=== PATIENT | male | born 1945 | race African-American/Black ===

== ENCOUNTER → 2016-11-18 | Outpatient (CLI) | payer OTHER, MEDICARE ==
--- NOTE | 2016-11-18 08:03 | RAD ---
Left shoulder, 3 views, 11/18/2016: History: Lifting injury No fracture or dislocation is identified. There is moderate degenerative change at the AC joint. There is subchondral cyst formation along the glenoid rim on a degenerative basis. The periarticular soft tissues are unremarkable. IMPRESSION: 1. Moderate degenerative change. 2. No acute bony abnormality is detected.
== END | disposition home or self-care (01) ==
LOC: DXRADRC 07:47
PROVIDERS: ATTEND Physician Assistant Medical
DX: M19.012 Primary osteoarthritis, left shoulder (principal)
CPT/HCPCS: 73030

== ENCOUNTER → 2017-05-13 | Outpatient (CLI) | payer MEDICARE, OTHER ==
--- NOTE | 2017-05-13 16:01 | RAD ---
Chest, 2 views, 05/13/2017: History: Dyspnea on exertion Comparison is made to a study from 11/30/2013. The heart is moderately enlarged. The pulmonary vascularity is within normal limits. There is mild fissural prominence on the right. No acute infiltrate is seen. Slight pleural thickening in the lateral costophrenic angles is probably due to subpleural fat. No definite pleural fluid is seen. Moderate spurring is present in the spine. IMPRESSION: 1. Cardiomegaly. 2. No acute infiltrates.
--- NOTE | 2017-05-13 16:16 | RAD ---
Right hip, 2 views, 05/13/2017: History: Hip pain No fracture or dislocation is identified. There is minimal narrowing of the right hip joint with mild marginal spurring. The periarticular soft tissues are unremarkable. IMPRESSION: No acute right hip abnormality is detected.
== END | disposition home or self-care (01) ==
LOC: PMG 15:16
PROVIDERS: ATTEND Family Medicine
DX: M25.551 Pain in right hip (principal); R06.09 Other forms of dyspnea; I51.7 Cardiomegaly
CPT/HCPCS: 71046; 73502

== ENCOUNTER → 2017-08-20 | Outpatient (CLI) | payer MEDICARE, OTHER ==
--- NOTE | 2017-08-20 13:48 | RAD ---
Chest, 2 views, 08/20/2017: HISTORY: Congestive heart failure Comparison is made to a study from 05/13/2017. The heart is enlarged. The pulmonary vascularity is within normal limits. No pulmonary consolidation is seen. There is mild fissural prominence, also evident on the previous study. This may reflect scarring or chronic subpleural edema. No free pleural fluid is evident. Mild spurring is present in the spine. IMPRESSION: 1. Moderate cardiomegaly. 2. No significant change since 05/13/2017. Electronically signed by: Vince Granados MD (08/20/2017 1:45 PM) [facility]
== END | disposition home or self-care (01) ==
LOC: PMG 10:42
PROVIDERS: ATTEND Family Medicine
DX: I50.9 Heart failure, unspecified (principal); I51.7 Cardiomegaly
CPT/HCPCS: 71046

== ENCOUNTER → 2017-09-03 | Outpatient (CLI) | payer MEDICARE, OTHER ==
--- NOTE | 2017-09-03 12:17 | RAD ---
Renal ultrasound, 09/03/2017: HISTORY: Stage IV chronic kidney disease The right kidney measures 10.2 cm in length while the left kidney measures 9.8 cm. There is a 4.3 cm simple cyst in the left kidney. There are 3 smaller cysts in the right kidney, the largest of which measures 1.8 cm. The renal parenchymal echogenicity is otherwise unremarkable. There is no evidence of hydronephrosis. No abnormal perinephric process is seen. The partially filled urinary bladder is unremarkable. The incompletely visualized prostate gland is enlarged. IMPRESSION: 1. Bilateral renal cysts. 2. No evidence of renal obstruction. 3. Nonspecific prostatic enlargement. Electronically signed by: Vince Granados MD (09/03/2017 12:13 PM) [facility]
== END | disposition home or self-care (01) ==
LOC: US 09:01
PROVIDERS: ATTEND Internal Medicine Nephrology
DX: N18.4 Chronic kidney disease, stage 4 (severe) (principal); N28.1 Cyst of kidney, acquired; N40.0 Benign prostatic hyperplasia without lower urinary tract symptoms
CPT/HCPCS: 76770

== ENCOUNTER → 2017-09-30 | Outpatient (CLI) | payer MEDICARE, OTHER ==
--- NOTE | 2017-09-30 11:50 | CARD ---
MR#: [id number] Date of Study: 09/30/2017 Ordering Physician: DURGA CARCAMO, Referring Physician: DURGA CARCAMO, Tech: DON Charlton APPROVED REPORT EXAM: Two-dimensional and M-mode echocardiogram with Doppler and color Doppler. Other Information Quality : Average INDICATION Cardiomyopathy Chronic Renal Disease 2D DIMENSIONS Left Atrium(2D)5.4 (1.6-4.0cm)IVSd1.8 (0.7-1.1cm) Aortic Root(2D)2.8 (2.0-3.7cm)LVDd6.1 (3.9-5.9cm) LVOT Diameter2.1 (1.8-2.4cm)PWd1.6 (0.7-1.1cm) LVDs4.9 (2.5-4.0cm)FS (%) 16.0 % SV17.3 mlLVEF(%)33.0 (>50%) Aortic Valve LVOT Peak Asif.52.5cm/s Tricuspid Valve RAP [id number] LEFT VENTRICLE The Left Ventricle is mildly dilated. There is mild to moderate concentric left ventricular hypertrop hy. The systolic function is severely impaired. EF 30%. There is global hypokinesis of the left ventr icle. RIGHT VENTRICLE The right ventricle is normal size. There is normal right ventricular wall thickness. The right ventr icular systolic function is normal. ATRIA The left atrium is moderately dilated. The right atrium is mildly dilated. The interatrial septum is intact with no evidence for an atrial septal defect or patent foramen ovale as noted on 2-D or Dopple r imaging. AORTIC VALVE The aortic valve is trileaflet. Doppler and Color Flow revealed trace aortic regurgitation. There is no significant aortic valvular stenosis. MITRAL VALVE Restricted posterior leaflet due to LV dilation. There is no mitral valve stenosis. Doppler and Color -flow revealed mild to moderate posteriorly directed mitral regurgitation. TRICUSPID VALVE The tricuspid valve is normal in structure and function. Doppler and Color Flow revealed trace tricus pid regurgitation. There is no tricuspid valve stenosis. PULMONIC VALVE The pulmonic valve is not well visualized. Doppler and Color Flow revealed trace pulmonic valvular re gurgitation. . There is no pulmonic valvular stenosis. GREAT VESSELS The aortic root is normal in size. There is mild pulmonary artery dilatation. The IVC is mildly dilat ed and partially collapses with inspiration. PERICARDIAL EFFUSION There is no pleural effusion. There is a trace circumferential pericardial effusion. Critical Notification Critical Value: No <Conclusion> The systolic function is severely impaired. EF 30%. There is global hypokinesis of the left ventricle. Doppler and Color-flow revealed mild to moderate posteriorly directed mitral regurgitation. Signed by : Durga Carcamo, Electronically Approved : 09/30/2017 11:49:51
== END | disposition home or self-care (01) ==
LOC: ECHO 09:04
PROVIDERS: ATTEND Internal Medicine Cardiovascular Disease
DX: I34.0 Nonrheumatic mitral (valve) insufficiency (principal); I51.7 Cardiomegaly; N18.4 Chronic kidney disease, stage 4 (severe)
CPT/HCPCS: 93306

== ENCOUNTER → 2018-11-05 | Outpatient (CLI) | payer MEDICARE ==
--- NOTE | 2018-11-05 10:30 | RAD ---
Chest radiograph 11/05/2018 12:00 AM INDICATION: Shortness of air COMPARISON: August 20, 2017 TECHNIQUE: Frontal and lateral views of the chest are provided. FINDINGS: The cardiomediastinal silhouette is enlarged, stable. Left chest wall cardiac device is identified with leads projecting over the right atrium and right ventricle. Mild pulmonary vascular congestion. No significant pleural effusions. No pneumothorax. No focal airspace consolidation. IMPRESSION: Mild congestive heart failure, as detailed above. Electronically signed by: Chantelle Howard MD (11/05/2018 10:28 AM) [id number]
== END | disposition home or self-care (01) ==
LOC: DXRAD 10:09
PROVIDERS: ATTEND Internal Medicine Nephrology
DX: I13.2 Hypertensive heart and chronic kidney disease with heart failure and with stage 5 chronic kidney disease, or end stage renal disease (principal); I50.9 Heart failure, unspecified; N18.6 End stage renal disease
CPT/HCPCS: 71046

== ENCOUNTER 2019-06-09 06:06 | Emergency (ER) | payer MEDICARE ==
[~2019-06-09] VITALS: Ht 182.9 cm; Wt 87.0 kg
[2019-06-09] MEDS ORDERED: IV NORMAL SALINE 1,000ML 1,000 ML IV ONE (06:30)
[2019-06-09] MEDS ORDERED: IV NORMAL SALINE 500ML 500 ML IV ONE (07:00)
[2019-06-09] MEDS ORDERED: PANTOPRAZOLE IV 40 MG VIAL. IVP ONE (07:15)
--- NOTE | 2019-06-09 07:38 | PHYS DOC ---
Past History Past Medical History: Hypertension, Renal Failure (HD M/W/F) Additional Past Surgical Histo: RUE AV fistula placement, benign tumor removal RLQ ABD Smoking: Quit Greater Than 1 Year Alcohol Use: Occasionally Drug Use: None Adult General Chief Complaint Chief Complaint: DIZZY/LIGHT HEADED HPI HPI 74-year-old male presents with report of dizziness/lightheadedness which became worse this morning. Patient does report history of end-stage renal disease on hemodialysis Friday/Friday/Friday. Reports last had dialysis on Friday. Reports yesterday day had felt fine. Reports last night at around 0 started to have some maroon-colored diarrhea like stooling. Reports that had 5-10 episodes of similar since. Reports upon getting up this morning felt very lightheaded. Denies room spinning sensation. Denies any loss of consciousness but reports upon getting up this morning that his "legs gave out" and caused him to "sit down on the ground". Patient does reports worse with position change more often upon standing. Denies history of vertigo. Denies any nausea or vomiting. Denies fever. Denies known sick contacts. Denies travel outside [facility]. Patient does report history of colonoscopy in [address] Muñoz which noted polyps. Review of Systems Review of Systems Constitutional: Denies fever or chills Eyes: Denies redness or eye pain HENT: Denies nasal congestion or sore throat Respiratory: Denies cough or shortness of breath Cardiovascular: Denies chest pain or palpitations GI: Denies abdominal pain, nausea, or vomiting; reports maroon diarrhea : Denies dysuria or hematuria Musculoskeletal: Denies back pain or joint pain Integument: Denies rash or skin lesions Neurologic: Denies headache, focal weakness or sensory changes; reports lightheadedness/dizziness Complete systems were reviewed and found to be within normal limits, except as documented in this note. Current Medications Current Medications Current Medications Medications (Trade) Dose Ordered Sig/Ezequiel Start Time Stop Time Status Last Admin Dose Admin Pantoprazole Sodium (Protonix Vial) 40 mg 1X ONCE 06/09/19 07:15 06/09/19 07:16 DC Sodium Chloride 500 ml @ 0 mls/hr 1X ONCE 06/09/19 07:00 06/09/19 07:01 DC Allergies Allergies Allergies Coded Allergies Type Severity Reaction Last Updated Verified No Known Drug Allergies 01/04/14 No Physical Exam Physical Exam Constitutional: Well developed, well nourished, no acute distress, non-toxic appearance HENT: Normocephalic, atraumatic, oropharynx moist Eyes: PERRL, EOMI, conjunctiva normal, no discharge, no nystagmus Neck: Normal range of motion, no tenderness, supple Cardiovascular: Heart rate tachycardic, regular rhythm Lungs & Thorax: Bilateral breath sounds clear to auscultation, no wheezing Abdomen: Soft, no tenderness, no guarding/distention/rebound tenderness Rectal exam: Nurse Quality present, no external hemorrhoid noted, maroon-colored liquid on digital rectal exam, no internal hemorrhoid or fissure noted, nontender Skin: Warm, dry, no erythema, no rash Back: No tenderness, no CVA tenderness Extremities: No tenderness, ROM intact, no edema, right upper extremity AV fistula with good thrill Neurologic: Alert and oriented X 3, normal motor function, normal sensory function, cerebellar function intact, no focal deficits noted Psychologic: Affect normal, judgment normal Current Patient Data Vital Signs Vital Signs Date Time Temp Pulse Resp B/P (MAP) Pulse Ox O2 Delivery O2 Flow Rate FiO2 06/09/19 06:20 97.8 62 18 104/64 (77) 98 Room Air EKG EKG @0638 Sinus tachycardia at 108bpm, paced, no prior EKG for comparison per [facility]. Radiology/Procedures Radiology/Procedures PROCEDURE: CT HEAD WO CONTRAST EXAM: CT HEAD WITHOUT CONTRAST. HISTORY: Dizziness. TECHNIQUE: Computed tomography of the head was performed without intravenous contrast. One or more of the following individualized dose reduction techniques were utilized for this examination: 1. Automated exposure control. 2. Adjustment of the mA and/or kV according to patient size. 3. Use of iterative reconstruction technique. COMPARISON: None. FINDINGS: There is no intracranial hemorrhage. Hypoattenuation within the periventricular white matter indicates mild chronic microangiopathic change. Prominence of the lateral ventricles and hemispheric sulci indicates mild atrophy. The visualized paranasal sinuses appear clear. The orbits are unremarkable. The temporal bones are unremarkable. The calvarium reveals no suspicious lesions. IMPRESSION: 1. No acute intracranial findings. 2. Mild atrophy and chronic microangiopathic white matter change. Electronically signed by: Hattie Blue MD (06/09/2019 7:34 AM) [id number] Course & Med Decision Making Course & Med Decision Making Pertinent Labs and Imaging studies reviewed. (See chart for details) Patient presents with report of near syncopal episodes since 2129 last night. Patient has also had 5-10 episodes of maroon colored bloody diarrhea which was confirmed on digital rectal exam. Patient does have a history of prior abdominal polyps. Patient also with history of end-stage renal disease on dialysis. Last dialysis was Friday. Patient denies history of need for prior blood transf usions. Patient denies any abdominal pain. Abdomen non-peritoneal. Rectal exam without signs of bleeding hemorrhoid or fissure. On arrival patient also noted to have low blood pressure despite not taking his blood pressure medication this morning. 500 mL bolus of IV fluids provided. Empiric Protonix provided. Orthostatic vital signs noted decrease by 10mmHg in diastolic from laying to sitting and increase 9bpm upon sitting to standing. Patient also symptomatic upon standing. EKG paced. Labs obtained and posted to chart. Potassium WNL. Hemoglobin 10.4. No prior lab value for comparison in [facility]. Troponin slightly elevated- likely secondary to renal disease. CT head without acute process. Patient requiring transfer for admission to facility with GI and nephrology coverage for further evaluation and treatment. Discussed with Dr. Thornton (hospitalist) who is accepting of transfer for admission to [facility]. Discussed findings and plan with patient and family, who acknowledge understanding and agreement. Of note: patient reports he does make urine but was unable to provide sample prior to transport to [facility]. Dragon Disclaimer Dragon Disclaimer This electronic medical record was generated, in whole or in part, using a voice recognition dictation system. Departure Departure: Impression: Primary Impression: Near syncope Additional Impressions: Acute GI bleeding ESRD (end stage renal disease) on dialysis Elevated troponin Disposition: 05 TRANSFER OTHER ([facility]) Admitting Physician: Artur Thornton (at [facility]) Condition: STABLE Referrals: MICHELLE AVILA MD (PCP) Problem Qualifiers RAH KRAMER DO Jun 09, 2019 07:38
[2019-06-09 07:53] VITALS: BP 114/67
[2019-06-09 08:00] LABS: BASO # 0.1 x10^3/uL (0.0-0.2); BASO % 2 % (0-3); EOS # 0.1 x10^3/uL (0.0-0.7); EOS % 1 % (0-3); HEMATOCRIT 33.4 % (39.0-53.0); HEMOGLOBIN 10.4 g/dL (13.0-17.5); LYMPH % 19 % (24-48); MEAN CORPUSCULAR HEMOGLOBIN 28 pg (25-35); MEAN CORPUSCULAR HGB CONC 31 g/dL (31-37); MEAN CORPUSCULAR VOLUME 89 fL (79-100); MONO # 0.7 x10^3/uL (0.0-1.1); MONO % 13 % (0-9); NEUT # 3.4 x10^3uL (1.8-7.7); NEUT % 65 % (31-73); PLATELET COUNT 191 x10^3/uL (140-400); RED BLOOD COUNT 3.74 x10^6/uL (4.30-5.70); RED CELL DISTRIBUTION WIDTH 17.8 % (11.5-14.5); WHITE BLOOD COUNT 5.2 x10^3/uL (4.0-11.0)
[2019-06-09 08:06] LABS: CALCIUM 8.4 mg/dL (8.5-10.1); CREATININE 10.9 mg/dL (0.7-1.3); GFR 5.6; POTASSIUM 4.2 mmol/L (3.5-5.1)
[2019-06-09 08:21] LABS: ALBUMIN 3.1 g/dL (3.4-5.0); ALBUMIN/GLOBULIN RATIO 0.8 (1.0-1.7); TOTAL BILIRUBIN 0.4 mg/dL (0.2-1.0); TOTAL PROTEIN 6.8 g/dL (6.4-8.2)
--- NOTE | 2019-06-09 17:33 | EKG ---
[address] [address] Test Date: 2019-06-09 Test Time: 06:38:41 Pat Name: NATE RANGEL Department: Room: Gender: M Order Picker: : [phone] Requested By: RAH KRAMER Order Number: [id number] Reading MD: Measurements Intervals [place] Rate: 108 P: 68 ID: [id number] QRS: -12 QRSD: 114 T: -59 QT: 374 QTc: 505 Interpretive Statements SINUS TACHYCARDIA LEFT ATRIAL ABNORMALITY LEFTWARD AXIS QRS(T) CONTOUR ABNORMALITY CONSIDER ANTEROLATERAL MYOCARDIAL DAMAGE T ABNORMALITY IN INFEROLATERAL LEADS ABNORMAL ECG RI6.01 No previous ECG available for comparison
== END 2019-06-09 08:50 | disposition short-term general hospital (02) ==
LOC: ER 06:06
DX: R55 Syncope and collapse (principal); K92.2 Gastrointestinal hemorrhage, unspecified; R79.89 Other specified abnormal findings of blood chemistry; I12.0 Hypertensive chronic kidney disease with stage 5 chronic kidney disease or end stage renal disease; N18.6 End stage renal disease; Z99.2 Dependence on renal dialysis; Z87.891 Personal history of nicotine dependence
CPT/HCPCS: 36415; 70450; 80053; 82553; 83735; 84484; 85025; 85610; 85730; 93005; 96374; 99285; C9113; J7040

== ENCOUNTER 2019-09-07 12:16 | Emergency (ER) | payer MEDICARE ==
[~2019-09-07] VITALS: Ht 182.9 cm; Wt 88.0 kg
[2019-09-07] MEDS ORDERED: DIPH,PERTUSS(ACELL),TET VAC/PF 0.5 ML SYRINGE. VAX IM ONE (12:30)
[2019-09-07] MEDS ORDERED: LIDOCAINE 1% Multi-Dose 20 ML VIAL. IJ ONE (12:45)
[2019-09-07 12:50] VITALS: BP 146/79
--- NOTE | 2019-09-07 13:09 | PHYS DOC ---
Past History Past Medical History: Hypertension, Renal Failure Past Surgical History: Other Additional Past Surgical Histo: RUE AV fistula placement, benign tumor removal RLQ ABD Smoking: Quit Greater Than 1 Year Alcohol Use: Rarely Drug Use: None General Adult EDM: Chief Complaint: LACERATION/AVULSION HPI: HPI: Patient is a 74-year-old male who presents to the emergency department about 10 hours after he stumbled getting out of bed fell and hit his right ear on the nightstand. He noticed it was bleeding but was not sure how significant the injury was so he went back to sleep woke up this morning and noticed that he had quite a large laceration on the right ear. He did not lose consciousness he does not have a headache he denies any lateralizing neurologic weakness. He does not know when his last tetanus was. [] Review of Systems: Review of Systems: Constitutional: Denies fever or chills Eyes: Denies change in visual acuity HENT: Right ear laceration Respiratory: Denies cough or shortness of breath Cardiovascular: Denies chest pain or edema GI: Denies abdominal pain, nausea, vomiting, bloody stools or diarrhea : Denies dysuria Musculoskeletal: Denies back pain or joint pain Integument: Per HPI Neurologic: Denies headache, focal weakness or sensory changes Endocrine: Denies polyuria or polydipsia Lymphatic: Denies swollen glands Psychiatric: Denies depression or anxiety Heart Score: Risk Factors: Risk Factors: DM, Current or recent (<one month) smoker, HTN, HLP, family history of CAD, obesity. Risk Scores: Score 0 - 3: 2.5% MACE over next 6 weeks - Discharge Home Score 4 - 6: 20.3% MACE over next 6 weeks - Admit for Clinical Observation Score 7 - 10: 72.7% MACE over next 6 weeks - Early Invasive Strategies Current Medications: Current Meds: Current Medications Medications (Trade) Dose Ordered Sig/Ezequiel Start Time Stop Time Status Last Admin Dose Admin Diphtheria/ Pertussis/Tetanus Vacc (ADACEL TDap SYRINGE) 0.5 ml ONCE ONCE 09/07/19 12:30 09/07/19 12:32 DC 09/07/19 12:44 0.5 ML Lidocaine HCl 20 ml 1X ONCE 09/07/19 12:45 09/07/19 12:46 UNV 09/07/19 12:43 20 ML Allergies: Allergies: Allergies Coded Allergies Type Severity Reaction Last Updated Verified No Known Drug Allergies 06/09/19 No Physical Exam: PE: Constitutional: Well developed, well nourished, no acute distress, non-toxic appearance. [] HENT: The right ear has a large complex laceration, there is a 3.5 semicircular laceration in the anti-helix area that is superficial to the cartilage the laceration extends around the helix and has split the helix through and through. [] Eyes: PERRLA, EOMI, conjunctiva normal, no discharge. [] Neck: Normal range of motion, no tenderness, supple, no stridor. [] Cardiovascular:Heart rate regular rhythm, no murmur [] Lungs & Thorax: Bilateral breath sounds clear to auscultation [] Abdomen: Bowel sounds normal, soft, no tenderness, no masses, no pulsatile masses. [] Skin: Warm, dry, no erythema, no rash. [] Back: No tenderness, no CVA tenderness. [] Extremities: Dialysis fistula right upper extremity, no tenderness, no cyanosis, no clubbing, ROM intact, no edema. [] Neurologic: Alert and oriented X 3, normal motor function, normal sensory f unction, no focal deficits noted. [] Psychologic: A anxious [] Current Patient Data: Vital Signs: Vital Signs Date Time Temp Pulse Resp B/P (MAP) Pulse Ox O2 Delivery O2 Flow Rate FiO2 09/07/19 12:20 98.8 96 20 156/72 (100) 96 Room Air EKG: EKG: [] Radiology/Procedures: Radiology/Procedures: [] Course & Med Decision Making: Course & Med Decision Making Pertinent Labs and Imaging studies reviewed. (See chart for details) [Procedure: Complex laceration repair right ear The wound was scrubbed with Hibiclens Betadine and irrigated with copious amounts of saline then using 5 cc of 1% lidocaine the area was anesthetized. Then using 10 simple interrupted 5-0 Prolene sutures the wound edges were reapproximated nicely. The patient tolerated the procedure well. Dragon Disclaimer: Dragon Disclaimer: This electronic medical record was generated, in whole or in part, using a voice recognition dictation system. Departure Departure: Impression: Primary Impression: Laceration of right ear, external Qualified Codes: S01.311A - Laceration without foreign body of right ear, initial encounter Disposition: HOME/RESIDENCE PRIOR TO ADM Condition: STABLE Referrals: MICHELLE AVILA MD (PCP) Patient Instructions: Ear Surgery, Care After, [id number], Laceration Care, Adult Additional Instructions: Sutures come out in 7 days. Use Neosporin twice daily to the wound. Return to the emergency department for any new or concerning symptoms SERGE KRISHNAN DO September 07, 2019 13:09
== END 2019-09-07 13:10 | disposition home or self-care (01) ==
LOC: ER 12:16
DX: S01.311A Laceration without foreign body of right ear, initial encounter (principal); I12.9 Hypertensive chronic kidney disease with stage 1 through stage 4 chronic kidney disease, or unspecified chronic kidney disease; N18.9 Chronic kidney disease, unspecified; Z87.891 Personal history of nicotine dependence; W22.03XA Walked into furniture, initial encounter; Y93.89 Activity, other specified; Y92.89 Other specified places as the place of occurrence of the external cause; Y99.8 Other external cause status
CPT/HCPCS: 12013; 90471; 90715; 99283-25

== ENCOUNTER 2019-09-15 10:36 | Emergency (ER) | payer MEDICARE ==
[~2019-09-15] VITALS: Ht 182.9 cm; Wt 88.0 kg
--- NOTE | 2019-09-15 11:01 | PHYS DOC ---
Past History Past Medical History: Hypertension, Renal Failure Past Surgical History: Other Additional Past Surgical Histo: RUE AV fistula placement, benign tumor removal RLQ ABD Smoking: Quit Greater Than 1 Year Alcohol Use: Rarely Drug Use: None General Adult EDM: Chief Complaint: SUTURE/STAPLE REMOVAL HPI: HPI: 74-year-old male presents for suture removal. Patient had a laceration of his right ear that was repaired 8 days ago. He presents to have these sutures removed. He has had no complications. He denies fever chills. Review of Systems: Review of Systems: Constitutional: Denies fever or chills Eyes: Denies change in visual acuity HENT: Denies nasal congestion or sore throat Respiratory: Denies cough or shortness of breath Cardiovascular: Denies chest pain or edema GI: Denies abdominal pain, nausea, vomiting, bloody stools or diarrhea : Denies dysuria Musculoskeletal: Denies back pain or joint pain Integument: Sutures right ear Neurologic: Denies headache, focal weakness or sensory changes Endocrine: Denies polyuria or polydipsia Lymphatic: Denies swollen glands Psychiatric: Denies depression or anxiety Heart Score: Risk Factors: Risk Factors: DM, Current or recent (<one month) smoker, HTN, HLP, family history of CAD, obesity. Risk Scores: Score 0 - 3: 2.5% MACE over next 6 weeks - Discharge Home Score 4 - 6: 20.3% MACE over next 6 weeks - Admit for Clinical Observation Score 7 - 10: 72.7% MACE over next 6 weeks - Early Invasive Strategies Allergies: Allergies: Allergies Coded Allergies Type Severity Reaction Last Updated Verified No Known Drug Allergies 06/09/19 No Physical Exam: PE: Constitutional: Well developed, well nourished, no acute distress, non-toxic appearance. [] HENT: Normocephalic, atraumatic, right superior ear with stitches in place, oropharynx moist, no oral exudates, nose normal. [] Eyes: PERRLA, EOMI, conjunctiva normal, no discharge. [] Neck: Normal range of motion, no tenderness, supple, no stridor. [] Cardiovascular:Heart rate regular rhythm, no murmur [] Lungs & Thorax: Bilateral breath sounds clear to auscultation [] Abdomen: Bowel sounds normal, soft, no tenderness, no masses, no pulsatile masses. [] Skin: Right ear with multiple sutures, no signs of infection, skin well approximated. [] Back: No tenderness, no CVA tenderness. [] Extremities: No tenderness, no cyanosis, no clubbing, ROM intact, no edema. [] Neurologic: Alert and oriented X 3, normal motor function, normal sensory function, no focal deficits noted. [] Psychologic: Affect normal, judgement normal, mood normal. [] EKG: EKG: [] Radiology/Procedures: Radiology/Procedures: [] Course & Med Decision Making: Course & Med Decision Making Pertinent Labs and Imaging studies reviewed. (See chart for details) The patient's laceration appears intact and a for suture removal. They have been her mood by the nurse without complication. He is stable for discharge at this time. [] Dragon Disclaimer: Dragon Disclaimer: This electronic medical record was generated, in whole or in part, using a voice recognition dictation system. Departure Departure: Impression: Primary Impression: Encounter for removal of sutures Disposition: HOME/RESIDENCE PRIOR TO ADM Condition: IMPROVED Referrals: MICHELLE AVILA MD (PCP) Patient Instructions: Suture Removal-Brief SHANTE PARK DO September 15, 2019 11:01
[2019-09-15 11:07] VITALS: BP 146/79
== END 2019-09-15 11:03 | disposition home or self-care (01) ==
LOC: ER 10:36
DX: S01.311D Laceration without foreign body of right ear, subsequent encounter (principal); I12.9 Hypertensive chronic kidney disease with stage 1 through stage 4 chronic kidney disease, or unspecified chronic kidney disease; N18.9 Chronic kidney disease, unspecified; Z87.891 Personal history of nicotine dependence; X58.XXXD Exposure to other specified factors, subsequent encounter
CPT/HCPCS: 99281

== ENCOUNTER → 2019-12-15 | Outpatient (CLI) | payer MEDICARE ==
[~2019-12-15] MED LIST: REGADENOSON 0.4 MG/5 ML DISP.SYRIN. IV ONE
--- NOTE | 2019-12-15 12:31 | RAD ---
MR#: [id number] Date of Study: 12/15/2019 Ordering Physician: RANDA CARCAMO, Referring Physician: LISA CASTILLO Tech: RT Quiana (R) (N) APPROVED REPORT Test Type: Pharmacological Stress Nurse/Tech: Quan Rosenberg Test Indications: Ventricular tachycardia Cardiac History: Diabetes Resting Heart Rate: 88 bpm Resting Blood Pressure: 154/69mmHg Pretest Chest Pain: No chest pain Pharm. Details Pharmacologic stress testing was performed using 0.4mg per 5ml of regadenoson given intravenously ove r 7-10 seconds. Stress Symptoms Dyspnea POST EXERCISE Reason for Termination: Infusion complete Max HR: 115 bpm Max Blood Pressure: 126/60mmHg Blood Pressure response to exercise: Normal blood pressure response during stress. Chest Pain: No. Arrhythmia: No. ST Change: No. INTERPRETATION Stress EKG Conclusion: Baseline EKG showed sinus rhythm. No ischemic changes at peak stress. No arr hythmias. Imaging Protocol IMAGE PROTOCOL: Rest Tc-99m/stress Tc-99m 1 day Rest: Stress: Viability: Radiopharm.Tc99m DbggdzqraVt12a Sestamibi [id number] 32mCi Duration 15min. 15min. Img Date 12/15/2019 12/15/2019 Inj-Img [id number]. 60min. Rest Admin Site:IV - Left AntecubitalAdministrator: RT Quiana (R)(N) Stress Admin Site: IV - Left AntecubitalAdministrator: RT Quiana (R)(N) STRESS DATA End Diast. Vol.140.0mlAv. Heart Rate97.0bpm End Syst. Vol.66.0mlCO Index BSA7.2L/min Myocardial Aiwq909.0gEject. Vfwlbbni95.0% Stress Rates Pk. Fill Rate3.02EDV/secLVtime Pk. Fill 84.55msec Pk. Empty Rate4.26ESV/secLVtime Pk. Tjjoo140.11msec 04/23 Pk. Fill1.95EDV/sec Stress Scores Regional WT1.00Summed WT13.00 Regional WM0.00Summed WM11.00 Study quality was good. Left Ventricular size was Normal at Rest and Stress. Lung uptake was . Left Ventricular ejection fraction is 58%. The rest and stress images show normal perfusion, normal contraction and thickening. LV Perf. Quant 17 Seg. SSS0.00 17 Seg. SRS2.00 17 Seg. SDS0.00 Stress Defect Extent (% LAD)0.00Rest Defect Extent (% LAD)5.00Rev. Defect Extent (% LAD)0.00 Stress Defect Extent (% LCX) 0.00Rest Defect Extent (% LCX)15.00Rev. Defect Extent (% LCX)0.00 Stress Defect Extent (% RCA)0.00Rest Defect Extent (% RCA)0.00Rev. Defect Extent (% RCA)0.00 Stress Defect Extent (% EVAN)0.00Rest Defect Extent (% EVAN)4.80Rev. Defect Extent (% EVAN)0.00 Conclusion 1. Regadenoson cardioisotope stress test did not show any evidence of ischemia or infarct. 2. Normal left ventricular systolic function with ejection fraction calculated at 58%. 3. Low risk for cardiac events. Signed by : Jarret Starr, Electronically Approved : 12/15/2019 12:30:49
== END | disposition home or self-care (01) ==
LOC: NM 08:02
PROVIDERS: ATTEND Internal Medicine Cardiovascular Disease
DX: I47.2 Ventricular tachycardia (principal)
CPT/HCPCS: 78452; 93017; A9500; J2785

== ENCOUNTER 2020-01-27 06:48 | Emergency (ER) | payer MEDICARE ==
[~2020-01-27] VITALS: Ht 177.8 cm; Wt 95.1 kg
[2020-01-27] MEDS ORDERED: MORPHINE SULFATE 4 MG/ML DISP.SYRIN. IV ONE (07:30)
[2020-01-27] MEDS ORDERED: IV NORMAL SALINE 1,000ML 1,000 ML IV ONE (07:30)
--- NOTE | 2020-01-27 07:30 | PHYS DOC ---
Past History Past Medical History: Hypertension, Renal Failure Past Surgical History: Other Additional Past Surgical Histo: RUE AV fistula placement, benign tumor removal RLQ ABD Smoking: Quit Greater Than 1 Year Alcohol Use: None Drug Use: None General Adult EDM: Chief Complaint: DIARRHEA HPI: HPI: History obtained from the patient. Patient is a 74-year-old male with past medical history notable for recent colonoscopy and ESRD follows hypertension who presents with chief complaint of lower abdominal pain for the past 3 days. He states the pain began gradually. States pain is aching in nature. He states he did have a colonoscopy 6 days ago. He states it was routine in nature. He is unsure if any polyps were removed. He states he was constipated post colonoscopy and therefore started to take laxatives. He states he took 3-4 doses over the past 3 days. He states that he has had loose stool since. Denies any nausea or vomiting. States he typically receives dialysis on Mondays, Wednesdays, and Fridays. He states he did not go yesterday because he is not feeling well. Denies any chest pain or shortness of breath. Denies any blood in the stool. Denies any urinary symptoms but does state that he makes a little bit of urine. Denies objective fevers. States that he seems to make the pain better or worse. He states he has tolerated p.o. well without difficulty. No other complaints. Review of Systems: Review of Systems: Constitutional: Denies fever or chills Eyes: Denies change in visual acuity HENT: Denies nasal congestion or sore throat Respiratory: Denies cough or shortness of breath Cardiovascular: Denies chest pain or edema GI: Positive for abdominal pain and diarrhea : Denies dysuria Musculoskeletal: Denies back pain or joint pain Integument: Denies rash Neurologic: Denies headache, focal weakness or sensory changes Endocrine: Denies polyuria or polydipsia Lymphatic: Denies swollen glands Psychiatric: Denies depression or anxiety Heart Score: Risk Factors: Risk Factors: DM, Current or recent (<one month) smoker, HTN, HLP, family histo ry of CAD, obesity. Risk Scores: Score 0 - 3: 2.5% MACE over next 6 weeks - Discharge Home Score 4 - 6: 20.3% MACE over next 6 weeks - Admit for Clinical Observation Score 7 - 10: 72.7% MACE over next 6 weeks - Early Invasive Strategies Current Medications: Current Meds: Current Medications Medications (Trade) Dose Ordered Sig/Ezequiel Start Time Stop Time Status Last Admin Dose Admin Sodium Chloride 1,000 ml @ 1,000 mls/hr 1X ONCE 01/27/20 07:30 01/27/20 08:29 UNV Allergies: Allergies: Allergies Coded Allergies Type Severity Reaction Last Updated Verified No Known Drug Allergies 06/09/19 No Physical Exam: PE: Constitutional: Well developed, well nourished, no acute distress, non-toxic appearance. [] HENT: Normocephalic, atraumatic, bilateral external ears normal, oropharynx moist, no oral exudates, nose normal. [] Eyes: PERRLA, EOMI, conjunctiva normal, no discharge. [] Neck: Normal range of motion, no tenderness, supple, no stridor. [] Cardiovascular:Heart rate regular rhythm, no murmur. Right upper extremity fistula with palpable thrill and audible bruit. [] Lungs & Thorax: Bilateral breath sounds clear to auscultation [] Abdomen: Soft, nontender, nonacute abdomen. No involuntary guarding or rigidity noted. No acute peritonitis. Skin: Warm, dry, no erythema, no rash. [] Back: No tenderness, no CVA tenderness. [] Extremities: No tenderness, no cyanosis, no clubbing, ROM intact, no edema. [] Neurologic: Alert and oriented X 3, normal motor function, normal sensory function, no focal deficits noted. [] Psychologic: Affect normal, judgement normal, mood normal. [] Current Patient Data: Labs: Laboratory Tests Test 01/27/20 07:38 White Blood Count 7.8 x10^3/uL Red Blood Count 3.83 x10^6/uL Hemoglobin 11.8 g/dL Hematocrit 36.7 % Mean Corpuscular Volume 96 fL Mean Corpuscular Hemoglobin 31 pg Mean Corpuscular Hemoglobin Concent 32 g/dL Red Cell Distribution Width 16.5 % Platelet Count 159 x10^3/uL Neutrophils (%) (Auto) 77 % Lymphocytes (%) (Auto) 11 % Monocytes (%) (Auto) 9 % Eosinophils (%) (Auto) 1 % Basophils (%) (Auto) 1 % Neutrophils # (Auto) 6.0 x10^3uL Lymphocytes # (Auto) 0.9 x10^3/uL Monocytes # (Auto) 0.7 x10^3/uL Eosinophils # (Auto) 0.1 x10^3/uL Basophils # (Auto) 0.1 x10^3/uL Sodium Level 139 mmol/L Potassium Level 3.8 mmol/L Chloride Level 101 mmol/L Carbon Dioxide Level 17 mmol/L Anion Gap 21 Blood Urea Nitrogen 84 mg/dL Creatinine 13.7 mg/dL Estimated GFR (Cockcroft-Gault) 4.3 BUN/Creatinine Ratio 6 Glucose Level 65 mg/dL Calcium Level 8.3 mg/dL Magnesium Level 2.2 mg/dL Total Bilirubin 0.5 mg/dL Aspartate Amino Transf (AST/SGOT) 22 U/L Alanine Aminotransferase (ALT/SGPT) 27 U/L Alkaline Phosphatase 57 U/L Total Protein 8.1 g/dL Albumin 3.6 g/dL Albumin/Globulin Ratio 0.8 Lipase 151 U/L Current Medications Medications (Trade) Dose Ordered Sig/Ezequiel Route PRN Reason Start Time Stop Time Status Last Admin Dose Admin Sodium Chloride 1,000 ml @ 1,000 mls/hr 1X ONCE IV 01/27/20 07:30 01/27/20 08:29 DC 01/27/20 07:46 Morphine Sulfate (Morphine 4mg Syringe) 4 mg 1X ONCE IV 01/27/20 07:30 01/27/20 07:42 DC 01/27/20 07:46 Ciprofloxacin Lactate 200 ml @ 200 mls/hr 1X ONCE IV 01/27/20 09:15 01/27/20 10:14 UNV Metronidazole 100 ml @ 100 mls/hr 1X ONCE IV 01/27/20 09:15 01/27/20 10:14 UNV Vital Signs: Vital Signs Date Time Temp Pulse Resp B/P (MAP) Pulse Ox O2 Delivery O2 Flow Rate FiO2 01/27/20 07:46 22 99 Room Air 01/27/20 07:15 99.1 93 20 152/89 (110) 98 Room Air EKG: EKG: [] Radiology/Procedures: Radiology/Procedures: [address] [address] IMAGING REPORT Signed PATIENT: NATE RANGEL ACCOUNT: [id number] : 1945 LOCATION: ER AGE: 74 SEX: M EXAM STATUS: REG ER ORD. PHYSICIAN: TEJ RODAS DO REASON: lower abdominal pain s/p colonscopy 6 days ago PROCEDURE: CT ABDOMEN PELVIS WO CONTRAST PQRS Compliance Statement: One or more of the following individualized dose reduction techniques were utilized for this examination: 1. Automated exposure control 2. Adjustment of the mA and/or kV according to patient size 3. Use of iterative reconstruction technique CT abdomen/pelvis without contrast 01/27/2020 12:00 AM INDICATION: Lower abdominal pain status post colonoscopy 6 days ago. COMPARISON: CT abdomen 06/29/2015 TECHNIQUE: Multiple axial CT images of the abdomen and pelvis were obtained without intravenous contrast. Coronal and sagittal reformats are provided. FINDINGS: There is a 3 mm calcified granuloma the right lung base. Heart size is enlarged. Cardiac pacer wires are partially profiled. Evaluation of solid abdominal viscera is limited by lack of intravenous contrast. Liver, spleen, bilateral adrenal glands and gallbladder are normal in appearance. There is mild fatty atrophy of the tail the pancreas. Abdominal aorta is normal in caliber with dense calcified atheromatous plaque. There are no pathologically enlarged lymph nodes in abdomen and pelvis. There is no free intraperitoneal air. Right external iliac lymph node measures 9.5 mm by short axis (series 2, image 115). Trace free fluid is identified along the retroperitoneum with periureteral fat stranding. Mild bilateral hydronephrosis. There is a right renal hypodensity which measures simple fluid attenuation suggestive of a cyst measuring 2.0 cm. Left renal cyst measures 5.1 cm. Inferior pole left renal hypodense lesion measures higher than that of simple fluid, 1.6 cm. Periureteral fat stranding is noted. There is mild bladder wall thickening with pericystic inflammatory changes. There is enlargement the prostate measuring 6.3 x 6.3 cm. There is hypoattenuation in the right peripheral zone measuring approximately 2.5 x 1.5 cm. Small fat-containing bilateral inguinal hernias. No suspicious osseous abnormality is identified. Urinary distention with urinary bladder measuring 8.8 x 9.7 x 14.5 cm. Small large bowel are normal in caliber. Mild colonic diverticulosis. No adjacent inflammatory changes. Inferior endplate Schmorl's node identified at T11 without significant height loss. No suspicious osseous abnormality. IMPRESSION: 1. There is urinary distention with mild bilateral hydroureteronephrosis with extensive periureteral and pericystic inflammatory changes. Findings most favor cystitis and pyelitis. Correlate clinically for pyelonephritis. Prominence of the renal collecting systems may reflect pyelstasis versus bladder outlet obstruction. 2. Prostatomegaly with a hypoattenuating area in the right peripheral zone measuring 2.5 x 1.5 cm. Correlate for signs and symptoms of prostatitis. 3. Mild diverticulosis without adjacent inflammatory changes. 4. Right external iliac lymph node measures 9.5 mm suggestive of reactive changes. 5. Indeterminate inferior pole left renal lesion measuring 1.6 cm. Further characterization with renal mass protocol CT or ultrasound could be of benefit. Electronically signed by: Michael Blanco MD (01/27/2020 8:11 AM) [facility] [place] DICTATED AND SIGNED BY: MICHAEL BLANCO MD DATE: 01/27/20810 CC: MICHELLE AVILA MD; TEJ RODAS DO ~ [] Course & Med Decision Making: Course & Med Decision Making Pertinent Labs and Imaging studies reviewed. (See chart for details) [] Patient is a 74-year-old male who presents with chief complaint of abdominal pain with changes in his stool over the past several days. Patient does have a history of ESRD and did miss dialysis yesterday. Chemistry panel does show significantly elevated creatinine. Electrolytes within normal limits. CT imaging does show nonspecific inflammatory changes near the pelvis. This could be related to diverticulitis. He will be given ciprofloxacin and Flagyl. Given his recently missed dialysis appointment I do feel he would benefit from hospitalization. Patient will be transferred to [facility] for nephrology consultation. Signout given to Dr.Madi Perez Disclaimer: Chris Disclaimer: This electronic medical record was generated, in whole or in part, using a voice recognition dictation system. Departure Departure: Impression: Primary Impression: Diverticulitis Additional Impression: ESRD (end stage renal disease) Disposition: 02 XFER SHT-TRM HOSP Condition: STABLE Referrals: MICHELLE AVILA MD (PCP) TEJ RODAS DO Jan 27, 2020 07:30
[2020-01-27 08:05] LABS: CALCIUM 8.3 mg/dL (8.5-10.1); CREATININE 13.7 mg/dL (0.7-1.3); GFR 4.3; POTASSIUM 3.8 mmol/L (3.5-5.1)
[2020-01-27 08:08] LABS: ALBUMIN 3.6 g/dL (3.4-5.0); ALBUMIN/GLOBULIN RATIO 0.8 (1.0-1.7); MAGNESIUM 2.2 mg/dL (1.8-2.4); TOTAL BILIRUBIN 0.5 mg/dL (0.2-1.0); TOTAL PROTEIN 8.1 g/dL (6.4-8.2)
--- NOTE | 2020-01-27 08:13 | RAD ---
PQRS Compliance Statement: One or more of the following individualized dose reduction techniques were utilized for this examination: 1. Automated exposure control 2. Adjustment of the mA and/or kV according to patient size 3. Use of iterative reconstruction technique CT abdomen/pelvis without contrast 01/27/2020 12:00 AM INDICATION: Lower abdominal pain status post colonoscopy 6 days ago. COMPARISON: CT abdomen 06/29/2015 TECHNIQUE: Multiple axial CT images of the abdomen and pelvis were obtained without intravenous contrast. Coronal and sagittal reformats are provided. FINDINGS: There is a 3 mm calcified granuloma the right lung base. Heart size is enlarged. Cardiac pacer wires are partially profiled. Evaluation of solid abdominal viscera is limited by lack of intravenous contrast. Liver, spleen, bilateral adrenal glands and gallbladder are normal in appearance. There is mild fatty atrophy of the tail the pancreas. Abdominal aorta is normal in caliber with dense calcified atheromatous plaque. There are no pathologically enlarged lymph nodes in abdomen and pelvis. There is no free intraperitoneal air. Right external iliac lymph node measures 9.5 mm by short axis (series 2, image 115). Trace free fluid is identified along the retroperitoneum with periureteral fat stranding. Mild bilateral hydronephrosis. There is a right renal hypodensity which measures simple fluid attenuation suggestive of a cyst measuring 2.0 cm. Left renal cyst measures 5.1 cm. Inferior pole left renal hypodense lesion measures higher than that of simple fluid, 1.6 cm. Periureteral fat stranding is noted. There is mild bladder wall thickening with pericystic inflammatory changes. There is enlargement the prostate measuring 6.3 x 6.3 cm. There is hypoattenuation in the right peripheral zone measuring approximately 2.5 x 1.5 cm. Small fat-containing bilateral inguinal hernias. No suspicious osseous abnormality is identified. Urinary distention with urinary bladder measuring 8.8 x 9.7 x 14.5 cm. Small large bowel are normal in caliber. Mild colonic diverticulosis. No adjacent inflammatory changes. Inferior endplate Schmorl's node identified at T11 without significant height loss. No suspicious osseous abnormality. IMPRESSION: 1. There is urinary distention with mild bilateral hydroureteronephrosis with extensive periureteral and pericystic inflammatory changes. Findings most favor cystitis and pyelitis. Correlate clinically for pyelonephritis. Prominence of the renal collecting systems may reflect pyelstasis versus bladder outlet obstruction. 2. Prostatomegaly with a hypoattenuating area in the right peripheral zone measuring 2.5 x 1.5 cm. Correlate for signs and symptoms of prostatitis. 3. Mild diverticulosis without adjacent inflammatory changes. 4. Right external iliac lymph node measures 9.5 mm suggestive of reactive changes. 5. Indeterminate inferior pole left renal lesion measuring 1.6 cm. Further characterization with renal mass protocol CT or ultrasound could be of benefit. Electronically signed by: Chantelle Howard MD (01/27/2020 8:11 AM) [facility]
[2020-01-27 08:20] LABS: BASO # 0.1 x10^3/uL (0.0-0.2); BASO % 1 % (0-3); EOS # 0.1 x10^3/uL (0.0-0.7); EOS % 1 % (0-3); HEMATOCRIT 36.7 % (39.0-53.0); HEMOGLOBIN 11.8 g/dL (13.0-17.5); LYMPH # 0.9 x10^3/uL (1.0-4.8); LYMPH % 11 % (24-48); MEAN CORPUSCULAR HEMOGLOBIN 31 pg (25-35); MEAN CORPUSCULAR HGB CONC 32 g/dL (31-37); MEAN CORPUSCULAR VOLUME 96 fL (79-100); MONO # 0.7 x10^3/uL (0.0-1.1); MONO % 9 % (0-9); NEUT % 77 % (31-73); PLATELET COUNT 159 x10^3/uL (140-400); RED BLOOD COUNT 3.83 x10^6/uL (4.30-5.70); RED CELL DISTRIBUTION WIDTH 16.5 % (11.5-14.5); WHITE BLOOD COUNT 7.8 x10^3/uL (4.0-11.0)
[2020-01-27] MEDS ORDERED: CIPROFLOXACIN 400MG PREMIX 200 ML IV ONE (09:15)
[2020-01-27 12:07] LABS: BILIRUBIN,URINE NEG (NEG); CLARITY,URINE CLEAR; COLOR,URINE YELLOW; GLUCOSE,URINE NEG (NEG)
[2020-01-27 12:08] LABS: BACTERIA,URINE 0 /HPF (0-FEW); NITRITE,URINE NEG (NEG); SPERM,URINE PRESENT /HPF; SQUAMOUS EPITHELIAL CELL,UR MANY /LPF; UROBILINOGEN,URINE 0.2 mg/dL (0.2 mg/dL); WBC,URINE OCC /HPF (0-4)
[2020-01-27 12:13] VITALS: BP 160/92
== END 2020-01-27 14:00 | disposition short-term general hospital (02) ==
LOC: ER 06:48
DX: K57.92 Diverticulitis of intestine, part unspecified, without perforation or abscess without bleeding (principal); I12.0 Hypertensive chronic kidney disease with stage 5 chronic kidney disease or end stage renal disease; N18.6 End stage renal disease; Z99.2 Dependence on renal dialysis; Z87.891 Personal history of nicotine dependence
CPT/HCPCS: 36415; 74176; 80053; 81001; 83690; 83735; 85025; 87493; 96361; 96365; 96368; 96375; 99285; J0744; J2270; J3490; J7030